=== PATIENT | female | born 1965 | race Caucasian/White ===

== ENCOUNTER → 2016-08-05 | Outpatient (CLI) | payer BC ==
[~2016-08-05] MED LIST: AMLO5TAB; HYDR12.512 PO
--- NOTE | 2016-08-05 11:33 | DI ---
Indication: ITS.REASON: M25.572 Pain in left ankle and joints of left foot lateral ankle pain and swelling without reported trauma PROCEDURE: MRI ANKLE LEFT W/O CONTRAST: Encounter: Initial Comparison: Ankle radiograph dated July 14, 2016 Technique: Multiplanar multisequence MR imaging of the left ankle was performed without contrast. FINDINGS: The Achilles tendon is normal in morphology and signal. Extensor tendons are normal. The posterior tibialis, flexor digitorum, and flexor hallucis longus tendons are normal. The peroneus longus and brevis tendons are normal. The deltoid ligament is intact. The anterior talofibular, calcaneofibular, and posterior talofibular ligaments are intact. The plantar fascia is normal. There is focal edema within the distal fibula. There is some surrounding edema within the adjacent peroneus and extensor hallucis musculature. No fluid collections identified. On sagittal STIR image #5 there is suggestion of a possible hypointense fracture line coursing obliquely. IMPRESSION: Focal edema within the distal fibula. Findings are most likely due to a nondisplaced trabecular fracture. Recommend follow-up radiographs to evaluate for signs of a healing fracture. If there are no signs of a healing fracture on radiographs then other etiologies would be considered such as infection or bone neoplasm/metastasis. .
== END ==
LOC: IMA 09:24
PROVIDERS: ATTEND Family Medicine
DX: R60.0 Localized edema (principal); M25.572 Pain in left ankle and joints of left foot